=== PATIENT | female | born 1995 | race Caucasian/White ===

== ENCOUNTER 2021-06-29 17:34 | Emergency (ER) | payer BC, OTHER ==
[~2021-06-29] VITALS: Ht 162.6 cm; Wt 69.7 kg
[~2021-06-29 17:34] MED LIST: BUSP1TAB PO; COLA100C5 PO; CYCL5TAB5 PO; DIBU28OI2 TOP; DULC5TAB PO; IBUP80TA PO; MAPA500T2 PO; VITAPRTA PO
[2021-06-29 18:57] LABS: BASO % 0.5 % (0.0-1.0); EOS # 0.2 10^3/uL (0.0-0.5); EOS % 3.2 % (0.0-3.0); HEMATOCRIT 38.9 % (36.0-47.0); HEMOGLOBIN 12.7 g/dl (12.0-15.5); LYMPH # 1.8 10^3/uL (1.5-5.0); MEAN CORPUSCULAR HEMOGLOBIN 29.4 pg (27.0-33.0); MEAN CORPUSCULAR HGB CONC 32.6 g/dl (32.0-36.5); MONO # 0.6 10^3/uL (0.0-0.8); MONO % 9.3 % (2.0-8.0); NEUTROPHILS # 3.6 10^3/uL (1.5-8.5); NEUTROPHILS % 57.8 % (36.0-66.0); PLATELET COUNT, AUTOMATED 219 10^3/uL (150-450); RED BLOOD COUNT 4.32 10^6/uL (4.00-5.40); WHITE BLOOD COUNT 6.3 10^3/uL (4.0-10.0)
[2021-06-29 19:22] LABS: ALBUMIN 2.9 GM/DL (3.2-5.2); ALT/SGPT 20 U/L (12-78); BILIRUBIN,DIRECT < 0.1 MG/DL (0.0-0.2); BILIRUBIN,TOTAL 0.2 MG/DL (0.2-1.0); LIPASE 123 U/L (73-393); TOTAL PROTEIN 6.6 GM/DL (6.4-8.2)
[2021-06-29] MEDS ORDERED: NS 1,000 ML IV ONE (20:05)
[2021-06-29] MEDS ORDERED: KETOROLAC 30 MG/ML 1ML VIAL IV ONE (20:05)
[2021-06-29] MEDS ORDERED: cefTRIAXone SOD 1 GM in D5W MINI-BAG PLUS 50 ML IV ONE (20:05)
[2021-06-29] MEDS ORDERED: CEFD1CAP8 PO (22:04)
[2021-06-29] MEDS ORDERED: METR1GEL7 PV (22:04)
[2021-06-29 22:15] VITALS: BP 124/58
[2021-06-29 23:17] LABS: GC DNA AMPLIFICATION NEGATIVE (NEGATIVE)
== END 2021-06-29 22:26 | disposition home or self-care (01) ==
LOC: M ED 17:34
DX: N39.0 Urinary tract infection, site not specified (principal); N89.8 Other specified noninflammatory disorders of vagina; F33.9 Major depressive disorder, recurrent, unspecified; F41.9 Anxiety disorder, unspecified; Z91.040 Latex allergy status; Z79.3 Long term (current) use of hormonal contraceptives
CPT/HCPCS: 80047; 80076; 81001; 83690; 84702; 85025; 87086; 87661; 96365; 96375; 99284; J0696; J1885

== ENCOUNTER 2021-11-19 22:03 | Emergency (ER) | payer BC ==
[~2021-11-19] VITALS: Ht 162.6 cm; Wt 70.6 kg
[~2021-11-19 22:03] MED LIST changes: +CEFD300C41 PO; +METR1GEL7 PV
[2021-11-19 22:51] LABS: BASO # 0.1 10^3/uL (0.0-0.2); BASO % 0.5 % (0.0-1.0); EOS # 0.1 10^3/uL (0.0-0.5); EOS % 1.3 % (0.0-3.0); HEMATOCRIT 36.5 % (36.0-47.0); LYMPH # 3.4 10^3/uL (1.5-5.0); LYMPH % 30.4 % (24.0-44.0); MEAN CORPUSCULAR HEMOGLOBIN 28.5 pg (27.0-33.0); MEAN CORPUSCULAR HGB CONC 32.9 g/dl (32.0-36.5); MEAN CORPUSCULAR VOLUME 86.7 fl (80.0-96.0); MONO # 0.9 10^3/uL (0.0-0.8); MONO % 7.9 % (2.0-8.0); NEUTROPHILS # 6.6 10^3/uL (1.5-8.5); NEUTROPHILS % 59.5 % (36.0-66.0); PLATELET COUNT, AUTOMATED 319 10^3/uL (150-450); RED BLOOD COUNT 4.21 10^6/uL (4.00-5.40); WHITE BLOOD COUNT 11.1 10^3/uL (4.0-10.0)
[2021-11-19 23:12] LABS: BLOOD UREA NITROGEN 12 MG/DL (7-18); CARBON DIOXIDE LEVEL 21 MEQ/L (21-32); CHLORIDE LEVEL 112 MEQ/L (98-107); CREATININE FOR GFR 0.73 MG/DL (0.55-1.30); GLOMERULAR FILTRATION RATE > 60.0 (>60); GLUCOSE, FASTING 99 MG/DL (70-100); POTASSIUM SERUM 4.2 MEQ/L (3.5-5.1); SODIUM LEVEL 140 MEQ/L (136-145)
[2021-11-20] MEDS ORDERED: ACETAMINOPHEN 325 MG TAB PO ONE (00:50)
[2021-11-20 01:00] VITALS: BP 118/56
== END 2021-11-20 01:16 | disposition home or self-care (01) ==
LOC: M ED 22:03
DX: N92.0 Excessive and frequent menstruation with regular cycle (principal); R31.0 Gross hematuria; R10.2 Pelvic and perineal pain; R10.84 Generalized abdominal pain; Z91.040 Latex allergy status; Z79.899 Other long term (current) drug therapy